=== PATIENT | male | born 1965 | race Two or more races ===

== ENCOUNTER 2017-07-05 08:16 | Inpatient (IN) | payer MEDICAID ==
[~2017-07-05] VITALS: Ht 182.9 cm; Wt 107.6 kg
[2017-07-05 09:06] LABS: Basophils # (auto) 0 uL; Basophils % (auto) 0.7 % (0.0-2.0); Eosinophils # (auto) 0.3 uL; Eosinophils % (auto) 4.9 % (0.0-7.0); Hematocrit 38.5 % (41.0-53.0); Hemoglobin 13.2 g/dL (13.5-17.5); Lymphocytes # (auto) 1.3 uL; Lymphocytes % (auto) 21.3 % (10.0-50.0); Mean Corpuscular Hemoglobin 31.2 pg (28.0-32.0); Mean Corpuscular Hgb Conc. 34.2 g/dL (32.0-36.0); Monocytes # (auto) 0.4 uL; Monocytes % (auto) 6.6 % (0.0-12.0); Neutrophils # (auto) 3.9 uL; Neutrophils % (auto) 66.5 % (37.0-80.0); Platelet Count (auto) 304 10^3/uL (140-450); Red Blood Cells 4.23 10^6/uL (4.5-5.90); Red Cell Distribution Width 14.1 % (11.8-14.3); White Blood Cell 5.9 10^3/uL (4.4-10.8)
[2017-07-05 09:31] LABS: Albumin 3.6 g/dL (3.4-5.0); BUN/Creatinine Ratio 11.7; Bilirubin, Total 0.4 mg/dL (0.2-1.0); Calcium 8.7 mg/dL (8.5-10.1); Potassium 3.1 mmol/L (3.5-5.1); Total Protein 7.9 g/dL (6.4-8.2)
[2017-07-05] MEDS ORDERED: SODIUM CHLORIDE 0.9% 1,000 ML IV ONE (09:54)
[2017-07-05] MEDS ORDERED: LEVETIRACETAM INJ 1,000 MG in D5W 5% 100 ML IV ONE (10:00)
[2017-07-05] MEDS ORDERED: LORazepam 2MG/ML-1ML VIAL IV ONE (10:00)
[2017-07-05 10:40] LABS: Urine Bacteria NONE SEEN /hpf (None Seen); Urine Blood Negative /uL (Negative); Urine Specific Gravity 1.007 (1.001-1.035); Urine WBC 1 /hpf (0 - 3)
[2017-07-05 10:41] LABS: INR 0.98 (0.9-1.15); Partial Thromboplastin Time 25.7 sec (22.64-33.71); Prothrombin Time 10.7 sec (9.37-12.3)
[2017-07-05 10:47] LABS: Alcohol, Urine < 3.0 mg/dL (0-5); Amphetamine Screen, Urine NEGATIVE (NEGATIVE); Barbiturate Scree,Urine NEGATIVE (NEGATIVE); Benzodiazephine Screen, Urine NEGATIVE (NEGATIVE); Cannabinoid Screen, Urine NEGATIVE (NEGATIVE); Cocaine Screen, Urine NEGATIVE (NEGATIVE); Opiate Scree,Urine NEGATIVE (NEGATIVE); Phencyclidine Screen, Urine NEGATIVE (NEGATIVE)
[2017-07-05] MEDS ORDERED: LORazepam 0.5 MG TAB PO PRN (12:45)
[2017-07-05] MEDS ORDERED: MORPHINE SULFATE 8mg/ml INJ SDV IV PRN ×2 (12:45)
[2017-07-05] MEDS ORDERED: LORazepam 2MG/ML-1ML VIAL IV PRN (12:45)
[2017-07-05] MEDS ORDERED: ACETAMINOPHEN 500 MG TAB PO PRN (12:45)
[2017-07-05] MEDS ORDERED: LACTULOSE 20Gm/30ML SOLN PO PRN (12:45)
[2017-07-05] MEDS ORDERED: HYDROcodone-ACET 5/325MG TAB PO PRN (12:45)
[2017-07-05] MEDS ORDERED: PROMETHAZINE HCL 25 MG/ML 1ML IV PRN (12:45)
[2017-07-05] MEDS ORDERED: NITROGLYCERIN 0.4 MG SL TAB SL PRN (12:45)
[2017-07-05] MEDS ORDERED: TEMAZEPAM 15 MG CAP PO PRN (12:45)
[2017-07-05] MEDS: SOD CHL 0.9%/ KCL 40MEQ 1,000 ML IV SCH (14:11)
[2017-07-05] MEDS: ENOXAPARIN SOD 40 MG/0.4 ML SYRINGE SC SCH (14:11)
[2017-07-05 16:40] VITALS: BP 124/69
[2017-07-05 17:18] VITALS: BP 124/69
[2017-07-05] MEDS ORDERED: CARV3.1240 PO (18:00)
[2017-07-05] MEDS ORDERED: AMLO5TAB2 PO (18:00)
[2017-07-05] MEDS ORDERED: ATO40T PO (18:00)
[2017-07-05] MEDS ORDERED: BACL10TA PO (18:00)
[2017-07-05] MEDS ORDERED: LOSA100T27 PO (18:00)
[2017-07-05] MEDS ORDERED: IBUP600T27 PO (18:00)
[2017-07-05] MEDS ORDERED: CLOP75TA41 PO (18:00)
[2017-07-05 22:00] VITALS: BP 121/79
[2017-07-05] MEDS: LEVETIRACETAM 500 MG TAB PO SCH (22:17)
[2017-07-06] MEDS: SOD CHL 0.9%/ KCL 40MEQ 1,000 ML IV SCH ×2 (02:05→15:25)
[2017-07-06 05:30] VITALS: BP 112/73
[2017-07-06 06:06] LABS: Cholesterol 95 mg/dL (< 200); HDL Cholesterol 24 mg/dL (40-59); LDL Cholesterol 67 mg/dL (< 100); Triglycerides 88 mg/dL (< 150)
[2017-07-06] MEDS ORDERED: INFLUENZA QUAD 2017-2018 0.5 ML SYRG IM ONE (06:15)
[2017-07-06 07:42] VITALS: BP 94/65
[2017-07-06] MEDS: LEVETIRACETAM 500 MG TAB PO SCH ×2 (09:46→21:21)
[2017-07-06] MEDS: ENOXAPARIN SOD 40 MG/0.4 ML SYRINGE SC SCH (09:47)
[2017-07-06 11:20] VITALS: BP 102/74
[2017-07-06] MEDS ORDERED: CLOPIDOGREL BISULFATE 75 MG TAB PO ONE (14:45)
[2017-07-06 16:46] VITALS: BP 121/80
[2017-07-06 20:00] VITALS: BP 111/72
[2017-07-06 22:00] VITALS: BP 111/72
[2017-07-06] MEDS ORDERED: ATORVASTATIN 20 MG TAB PO SCH (22:00)
[2017-07-07] MEDS: SOD CHL 0.9%/ KCL 40MEQ 1,000 ML IV SCH (02:23)
[2017-07-07 05:30] VITALS: BP 111/70
[2017-07-07 08:00] VITALS: BP 105/71
[2017-07-07 08:39] VITALS: BP 105/71
[2017-07-07] MEDS: LEVETIRACETAM 500 MG TAB PO SCH (09:56)
[2017-07-07] MEDS: ENOXAPARIN SOD 40 MG/0.4 ML SYRINGE SC SCH (09:57)
[2017-07-07] MEDS ORDERED: CLOPIDOGREL BISULFATE 75 MG TAB PO SCH (10:00)
[2017-07-07 11:50] VITALS: BP 114/68
[2017-07-07 15:30] VITALS: BP 114/68
== END 2017-07-07 16:25 | disposition home or self-care (01) | DRG 53 ==
LOC: ER 08:16 → TELE 08:17 → TELE-EAST 16:57
PROVIDERS: ADMIT Internal Medicine; ATTEND Internal Medicine
DX: G40.409 Other generalized epilepsy and epileptic syndromes, not intractable, without status epilepticus (principal); I69.351 Hemiplegia and hemiparesis following cerebral infarction affecting right dominant side; F32.9 Major depressive disorder, single episode, unspecified; E66.9 Obesity, unspecified; E87.6 Hypokalemia; I69.320 Aphasia following cerebral infarction; Z68.32 Body mass index [BMI] 32.0-32.9, adult; Z79.899 Other long term (current) drug therapy; Z83.3 Family history of diabetes mellitus; Z79.02 Long term (current) use of antithrombotics/antiplatelets; Z74.01 Bed confinement status
CPT/HCPCS: 36415; 51702; 70450; 71045; 80053; 80061; 80307; 81001; 83735; 84484; 85025; 85610; 85652; 85730; 93005; 94761; 95819; 96361; 96365; 96375; 97163; J7060